=== PATIENT | male | born 1960 | race Caucasian/White ===

== ENCOUNTER 2020-10-26 06:04 | Inpatient (IN) ==
[2020-10-26] MEDS ORDERED: CeFAZolin Syr 2,000MG/20 ML 2,000 MG/20 ML SYRINGE IVPB ONE (06:20)
[2020-10-26] MEDS ORDERED: Ringers Solution, Lactated 1,000 ML IVC SCH (06:30)
[2020-10-26] MEDS ORDERED: Lidocaine -MPF 2% 2 ML VIAL ONE ×2 (06:41→07:04)
[2020-10-26] MEDS ORDERED: Dexamethasone 4 MG/ML VIAL ONE ×3 (06:41→07:07)
[2020-10-26] MEDS ORDERED: Ondansetron 4 MG/2 ML VIAL ONE ×2 (06:41→07:04)
[2020-10-26] MEDS ORDERED: *HR* Rocuronium Bromide 50 MG/5 ML VIAL ONE ×4 (06:41→10:05)
[2020-10-26] MEDS ORDERED: *HR* Succinylcholine 200 MG/10 ML VIAL IVP ONE ×2 (06:41→07:04)
[2020-10-26] MEDS ORDERED: *HR* FentaNYL (PF) 100 MCG/2 ML VIAL ONE ×2 (07:04→08:00)
[2020-10-26] MEDS ORDERED: *HR* Propofol 200 MG/20 ML VIAL IVP ONE (07:04)
[2020-10-26] MEDS ORDERED: *HR* Midazolam HCl 2 MG/2 ML VIAL ONE (07:04)
[2020-10-26] MEDS ORDERED: Lidocaine HCL 4 ML Topical Solution (Laryng-O-Jet Kit Sterile Pak) TP ONE (07:04)
[2020-10-26] MEDS ORDERED: Bupivacaine-MPF 0.25% 10 ML VIAL ONE (07:14)
[2020-10-26] MEDS ORDERED: Ondansetron 4 MG/2 ML VIAL IVP PRN ×2 (07:16→13:18)
[2020-10-26] MEDS ORDERED: Mannitol 25% vial 12.5 GM/50 ML VIAL IVP ONE (07:25)
[2020-10-26] MEDS ORDERED: *HR* PHENYLEPHRINE 1,000 MCG/10 ML SYRINGE IVP ONE (08:02)
[2020-10-26] MEDS ORDERED: *HR* HYDROMORPHONE 2 MG/ML VIAL ONE (08:42)
[2020-10-26] MEDS ORDERED: Sugammadex Sodium 200 MG/2 ML VIAL IV ONE (10:05)
[2020-10-26] MEDS ORDERED: Albumin Human 5% 25.0 GM/500 ML IV.SOLN ONE (10:38)
[2020-10-26] MEDS: *HR* HYDROmorphone (PF) 1 MG/ML SYRINGE IVP PRN ×4 (12:08→12:37)
[2020-10-26] MEDS ORDERED: Naloxone 0.4 MG/ML INJ IVP PRN (13:18)
[2020-10-26] MEDS ORDERED: *HR* OxyCODONE/APAP 5/325 TABLET PO PRN (13:18)
[2020-10-26] MEDS ORDERED: Acetaminophen 325 MG TABLET PO PRN (13:18)
[2020-10-26] MEDS: 0.9 % Sodium Chloride 1,000 ML IVC SCH ×2 (14:18→23:27)
[2020-10-26] MEDS: CeFAZolin 2 GM/120 ML BAG IVPB SCH ×2 (15:59→23:27)
[2020-10-26] MEDS ORDERED: risperiDONE 1 MG TABLET PO SCH (21:00)
[2020-10-27 06:36] LABS: Basophils % 0.1 %; Eosinophils % 0.3 %; Hematocrit 30.4 % (37.5-50.1); Hemoglobin 9.8 g/dL (12.9-16.9); Immature Granulocytes % 0.3 % (0-4); Lymphocytes # 1.9 K/mcL (0.6-4.6); Lymphocytes % 16.1 %; Mean Corpuscular HGB Conc 32.2 g/dL (31.6-35.5); Mean Corpuscular Hemoglobin 31.7 pg (28.0-33.3); Mean Corpuscular Volume 98.4 fL (83.0-100.0); Mean Platelet Volume 8.9 fL (9.4-12.4); Monocytes # 1.2 K/mcL (0.0-1.3); Monocytes % 10.7 %; Neutrophils # 8.4 K/mcL (1.6-8.9); Platelet Count 237 K/mcL (140-400); Red Blood Count 3.09 M/mcL (4.19-5.50); Red Cell Distribution Width 13.7 % (11.5-14.5); Segmented Neutrophils % 72.5 %; White Blood Count 11.6 K/mcL (4.3-11.1)
[2020-10-27 06:55] LABS: BUN/Creatinine Ratio 14 (6-26); Blood Urea Nitrogen 16 mg/dL (6-20); Calcium 8.9 mg/dL (8.6-10.3); Carbon Dioxide 25 mEq/L (23-29); Chloride 107 mEq/L (98-107); Glucose 116 mg/dL (70-105); Osmolality,Calculated 290 (280-300); Potassium 3.9 mEq/L (3.5-5.1); Sodium 139 mEq/L (136-145); eGFR For African Americans > 60 (> 60); eGFR For Non-African Americans > 60 (> 60)
[2020-10-27] MEDS: 0.9 % Sodium Chloride 1,000 ML IVC SCH (08:19)
[2020-10-27] MEDS ORDERED: hydroCHLOROthiazide 25 MG TABLET PO SCH (09:00)
[2020-10-27 10:36] VITALS: BP 155/75
== END 2020-10-27 12:03 | disposition home or self-care (01) | DRG 442 ==
LOC: SAMDAY 06:04 → 3ANU 13:10
PROVIDERS: ADMIT Urology; ATTEND Urology